=== PATIENT | female | born 1970 | race Caucasian/White ===

== ENCOUNTER → 2018-05-27 | Outpatient (CLI) | payer OTHER ==
[~2018-05-27] MED LIST: ASCO250T2 PO; CALC-42 PO; GREE250C PO; LACT1CAP43 PO; NORE1TAB21 PO; VITA150T PO
== END ==
LOC: STAR 14:37
PROVIDERS: ATTEND Internal Medicine
DX: Z02.9 Encounter for administrative examinations, unspecified (principal)

== ENCOUNTER 2018-05-31 06:52 | Day surgery (SDC) | payer OTHER ==
[~2018-05-31] VITALS: Ht 172.7 cm; Wt 65.0 kg
[~2018-05-31 06:52] MED LIST changes: +PROPOFOL 10 MG/ML, 20ML ONE
[2018-05-31] MEDS ORDERED: LACTATED RINGERS 1,000 ML IV SCH (07:14)
[2018-05-31 07:16] VITALS: BP 122/74
[2018-05-31 07:35] LABS: HCG UR SG 1.018 (1.003-1.030)
[2018-05-31] MEDS ORDERED: PROPOFOL 10 MG/ML, 20ML ONE ×4 (08:08→08:36)
== END 2018-05-31 10:10 ==
LOC: OUT 06:52
PROVIDERS: ATTEND Internal Medicine
DX: K21.0 Gastro-esophageal reflux disease with esophagitis (principal)
CPT/HCPCS: 43238; 81025; 88305; J2704; J7120